=== PATIENT | male | born 1980 | race Caucasian/White ===

== ENCOUNTER 2017-03-14 21:12 | Inpatient (IN) | payer MEDICARE ==
[~2017-03-14] VITALS: Ht 182.9 cm; Wt 68.3 kg
[2017-03-14] MEDS ORDERED: SODIUM CHLORIDE 0.9% 1,000ML IVBOLUS ONE (22:00)
[2017-03-14 22:29] LABS: HEMATOCRIT 48.5 % (39.2-51.8); HEMOGLOBIN 15.9 g/dL (13.7-18.0); WHITE BLOOD COUNT 11.4 x10^3/uL (3.4-10)
[2017-03-14 23:13] LABS: BLOOD UREA NITROGEN 12 mg/dL (7-18)
[2017-03-14] MEDS ORDERED: INSULIN REGULAR 100 UNITS/ML, 3ML VIAL ONE (23:44)
[2017-03-14] MEDS ORDERED: VANCOMYCIN 1,300 MG in SODIUM CHLORIDE 0.9% 250 ML IV ONE (23:45)
[2017-03-15] MEDS ORDERED: INSULIN REGULAR 100 UNITS/ML, 3ML VIAL SQ-INSULIN ONE
[2017-03-15] MEDS ORDERED: AMPICILLIN/SULBACTAM 3 GM in SODIUM CHLORIDE 0.9% 100 ML IV ONE
[2017-03-15] MEDS ORDERED: SODIUM CHLORIDE 0.9% 1,000 ML IV SCH (00:35)
[2017-03-15] MEDS ORDERED: DEXTROSE 50%, 50ML SYRINGE IVPush PRN (01:00)
[2017-03-15] MEDS ORDERED: ONDANSETRON ODT 4 MG PO PRN (01:00)
[2017-03-15] MEDS ORDERED: DOCUSATE 100 MG CAPSULE PO PRN (01:00)
[2017-03-15] MEDS ORDERED: DEXTROSE 4 GM TAB.CHEW PO PRN (01:00)
[2017-03-15] MEDS ORDERED: TEMAZEPAM 15 MG CAPSULE PO PRN (01:00)
[2017-03-15] MEDS ORDERED: GLUCAGON 1 MG IM PRN (01:00)
[2017-03-15] MEDS ORDERED: ENOXAPARIN 40 MG/0.4 ML SQ SCH (01:00)
[2017-03-15] MEDS ORDERED: hydrALAzine 20 MG/ML, 1ML IVPush PRN (01:00)
[2017-03-15] MEDS ORDERED: VANCOMYCIN PER PHARMACY MC PRN ×2 (01:00)
[2017-03-15] MEDS: INSULIN ASPART 100 UNITS/ML, PEN SQ-INSULIN SCH ×2 (01:00→07:17)
[2017-03-15] MEDS ORDERED: ACETAMINOPHEN 325 MG TABLET PO PRN (01:00)
[2017-03-15] MEDS ORDERED: ENOXAPARIN 40 MG/0.4 ML ONE (02:54)
[2017-03-15] MEDS ORDERED: AMPICILLIN/SULBACTAM 3 GM IM SCH (08:00)
[2017-03-15] MEDS ORDERED: SODIUM CHLORIDE FLUSH 10ML SYR IVF SCH (09:00)
[2017-03-15 09:02] VITALS: BP 134/89
== END 2017-03-15 09:05 | disposition left against medical advice (07) | DRG 638 ==
LOC: ED 23:59 → EDIP 03-15 00:34
PROVIDERS: ADMIT Hospitalist; ATTEND Hospitalist
DX: E11.621 Type 2 diabetes mellitus with foot ulcer (principal); L03.116 Cellulitis of left lower limb; L97.509 Non-pressure chronic ulcer of other part of unspecified foot with unspecified severity; E11.65 Type 2 diabetes mellitus with hyperglycemia; L03.115 Cellulitis of right lower limb; F17.210 Nicotine dependence, cigarettes, uncomplicated; Z83.3 Family history of diabetes mellitus; Z91.14 Patient's other noncompliance with medication regimen
CPT/HCPCS: 36415; 80048; 82010; 82040; 82800; 83605; 85025; 87040; 96361; 96365; 96366; 96367; 96372; J0295; J1650; J3370; J7030; J7050